=== PATIENT | male | born 1995 | race Caucasian/White ===

== ENCOUNTER 2017-08-20 20:55 | Emergency (ER) | payer SELFPAY ==
[2017-08-20] MEDS ORDERED: IBUPROFEN 600 MG TABLET (FP) PO ONE (21:09)
[2017-08-20 21:10] VITALS: BP 157/75; PULSE 62; TEMP 98.8; BMI 32.1
--- NOTE | 2017-08-20 21:10 | PDOC ---
Rapid Medical Evaluation Time Seen by Provider: 08/20/17 21:05 Medical Evaluation: 08/20/17 21:05 The patient presents with a chief complaint of: R hand pain. Got hand caught in metal door. Grossly swollen I have performed a brief in-person evaluation of this patient; Pertinent physical exam findings: ambulatory, in no respiratory distress. Swelling to R hand. Pulses intact, able to move all fingers. I have ordered the following: R hand.wrist x-ray, Motrin 600 The patient will proceed to the ED for further evaluation.
--- NOTE | 2017-08-20 21:17 | PDOC ---
History of Present Illness - General Chief Complaint: Bone Injury Stated Complaint: INJURY Time Seen by Provider: 08/20/17 21:05 History Source: Patient - History of Present Illness Occurred: reports: this afternoon Upper Extremity Pain Location: right: hand Method of Injury: reports: direct blow Past History - Past Medical History Allergies/Adverse Reactions: Allergies Allergy/AdvReac Type Severity Reaction Status Date / Time No Known Allergies Allergy Verified 08/20/17 21:07 Home Medications: Ambulatory Orders NK [No Known Home Medication] 08/20/17 - Suicide/Smoking/Psychosocial Hx Smoking History: Never smoked Review of Systems - Review of Systems Musculoskeletal: Yes: Joint Pain, Joint Swelling *Physical Exam - Vital Signs Last Vital Signs Temp Pulse Resp BP Pulse Ox 98.8 F 62 20 157/75 99 08/20/17 21:07 08/20/17 21:07 08/20/17 21:07 08/20/17 21:07 08/20/17 21:07 - Physical Exam General Appearance: Yes: Appropriately Dressed. No: Apparent Distress Respiratory/Chest: negative: Respiratory Distress Extremity: positive: Swelling (over dorsum of R 3rd metatarsal of R hand, able to move fingers, NVI) Integumentary: positive: Dry, Warm Neurologic: positive: Fully Oriented, Alert, Normal Mood/Affect ED Treatment Course - Medications Given in the ED: ED Medications Discontinued Medications Generic Name Dose Route Start Last Admin Trade Name Freq PRN Reason Stop Dose Admin Ibuprofen 600 mg 08/20/17 21:09 08/20/17 21:13 Motrin - PO 08/20/17 21:10 600 mg ONCE ONE Administration Medical Decision Making - Medical Decision Making 08/20/17 21:17 22-year-old male complaining of right hand pain and swelling after hand got slammed in metal door at work tonight. Patient in mild distress with significant swelling over dorsum of right third metatarsal. Able to move fingers and neurovascularly intact. Pain control given at triage. Patient pending x-ray 08/20/17 22:04 X-ray negative for fracture. Roberto placed. Patient to take Motrin as needed *DC/Admit/Observation/Transfer Diagnosis at time of Disposition: Hand sprain Qualifiers: Encounter type: initial encounter Laterality: right Qualified Code(s): S63.91XA - Sprain of unspecified part of right wrist and hand, initial encounter - Discharge Dispostion Disposition: HOME Condition at time of disposition: Good - Referrals Referrals: Bradley Rivas MD [Staff Physician] - - Patient Instructions Printed Discharge Instructions: Sprain Additional Instructions: Your x-ray was negative for fracture. Keep roberto bandage in place for comfort. Take Motrin as needed. If symptoms persist after 2 weeks, jeffy see Dr. Rivas of orthopedics - Post Discharge Activity
== END 2017-08-20 22:17 | disposition home or self-care (01) ==
LOC: JER 20:55
DX: S63.8X1A Sprain of other part of right wrist and hand, initial encounter (principal); W23.0XXA Caught, crushed, jammed, or pinched between moving objects, initial encounter; Y93.89 Activity, other specified; Y92.89 Other specified places as the place of occurrence of the external cause; Y99.0 Civilian activity done for income or pay
CPT/HCPCS: 73110-TC-RT-FY; 73130-TC-RT-FY; 99281-25